=== PATIENT | male | born 1940 | race Caucasian/White ===

== ENCOUNTER → 2021-08-20 | Outpatient (CLI) | payer OTHER | LOC: KOH-I 13:25 | DX: G91.2 (Idiopathic) normal pressure hydrocephalus (principal); R41.3 Other amnesia; R41.89 Other symptoms and signs involving cognitive functions and awareness; N40.0 Benign prostatic hyperplasia without lower urinary tract symptoms; G62.9 Polyneuropathy, unspecified; R32 Unspecified urinary incontinence | CPT/HCPCS: 70551 ==